=== PATIENT | male | born 1950 | race Caucasian/White ===

== ENCOUNTER 2024-05-31 03:01 | Emergency (ER) | payer OTHER, MEDICARE ==
[2024-05-31 03:11] VITALS: BP 136/78; PULSE 56; RESP 18; TEMP 97.5; BMI 27.4
[2024-05-31] MEDS ORDERED: SULFAMETHOXAZOLE/TRIMETHOPRIM 800MG/160MG D.S. TABLET ONE (03:24)
[2024-05-31] MEDS: SULFAMETHOXAZOLE/TRIMETHOPRIM 800MG/160MG D.S. TABLET PO ONE (03:35)
== END 2024-05-31 03:36 | disposition home or self-care (01) ==
LOC: FER 03:01
DX: R22.2 Localized swelling, mass and lump, trunk (principal); L08.9 Local infection of the skin and subcutaneous tissue, unspecified
CPT/HCPCS: 99283-25

== ENCOUNTER 2024-05-31 09:12 | Emergency (ER) | payer OTHER, MEDICARE ==
[2024-05-31] MEDS ORDERED: SULFAMETHOXAZOLE/TRIMETHOPRIM 800MG/160MG D.S. TABLET ONE (09:37)
[2024-05-31] MEDS ORDERED: CEPHALEXIN MONOHYDRATE 500 MG CAPSULE (UD) ONE (09:37)
[2024-05-31] MEDS: CEPHALEXIN MONOHYDRATE 500 MG CAPSULE (UD) PO ONE (09:40)
[2024-05-31] MEDS: SULFAMETHOXAZOLE/TRIMETHOPRIM 800MG/160MG D.S. TABLET PO ONE (09:40)
[2024-05-31 09:48] VITALS: BP 128/73; PULSE 71; RESP 20; TEMP 98.4; BMI 27.4
== END 2024-05-31 10:07 | disposition home or self-care (01) ==
LOC: FER 09:12
DX: M79.642 Pain in left hand (principal); L03.114 Cellulitis of left upper limb
CPT/HCPCS: 99283-25